=== PATIENT | female | born 1960 | race Two or more races ===

== ENCOUNTER 2024-02-13 14:30 | Observation (INO) | payer OTHER ==
[~2024-02-13] VITALS: Ht 154.9 cm; Wt 50.8 kg
[2024-02-13 15:17] VITALS: BP 143/78; PULSE 105; RESP 19; TEMP 98.2; O2SAT 100
[2024-02-13 16:01] VITALS: O2SAT 100
[2024-02-13 16:45] LABS: BASOPHILS % (AUTO) 0.3 % (0.0-2.0); EOSINOPHILS % (AUTO) 0.3 % (0.0-4.0); HEMATOCRIT 41.3 % (36-48); HEMOGLOBIN 14.5 g/dL (12.0-16.0); LYMPHOCYTES # (AUTO) 1.6 K/uL (2.5-16.5); LYMPHOCYTES % (AUTO) 23.7 % (20.5-51.1); MEAN CORPUSCULAR HEMOGLOBIN 30 pg (27-31); MEAN CORPUSCULAR HGB CONC 35 g/dL (33-37); MEAN CORPUSCULAR VOLUME 84.6 fL (80-94); MONOCYTES # (AUTO) 0.4 K/uL (0.8-1.0); MONOCYTES % (AUTO) 5.4 % (1.7-9.3); NEUTROPHILS # (AUTO) 4.6 K/uL (1.8-7.7); NEUTROPHILS % (AUTO) 70.3 % (42.2-75.2); PLATELET COUNT (AUTO) 290 K/uL (140-450); RED BLOOD CELL COUNT(AUTO) 4.88 MIL/uL (4.20-5.40); RED CELL DISTRIBUTION WIDTH 12.8 % (11.6-13.7); WHITE BLOOD COUNT (AUTO) 6.5 K/uL (4.8-10.8)
[2024-02-13 17:10] LABS: ANION GAP 13.7 (8-16); CALCIUM 8.9 mg/dL (8.5-10.1); POTASSIUM 3.7 mmol/L (3.5-5.1)
[2024-02-13 17:18] LABS: ALANINE AMINOTRANSFERASE 22 U/L (12-78); ALBUMIN 4.2 g/dL (3.4-5.0); ALKALINE PHOSPHATASE 91 U/L (50-136); ASPARTATE AMINOTRANSFERASE 20 U/L (15-37); BILIRUBIN,DIRECT 0.1 mg/dL (0.0-0.3); TOTAL BILIRUBIN 0.2 mg/dL (0.0-1.0); TOTAL PROTEIN, SERUM 8.9 g/dL (6.4-8.2)
[2024-02-13] MEDS ORDERED: ACETAMINOPHEN 325 MG TAB PO PRN (18:55)
[2024-02-13] MEDS ORDERED: LORazepam 2 MG/ML VIAL IVP PRN (18:55)
[2024-02-13] MEDS ORDERED: ONDANSETRON 4 MG/2 ML VIAL IVP PRN (18:55)
[2024-02-13] MEDS ORDERED: HYDROmorphone PFS 2 MG/ML SYR IVP PRN (18:55)
[2024-02-13] MEDS ORDERED: ZOLPIDEM 5 MG TAB PO PRN (18:55)
[2024-02-13] MEDS ORDERED: MORPHINE SULFATE 2 MG/ML SYR IVP PRN (18:55)
[2024-02-13] MEDS ORDERED: NITROGLYCERIN 0.4 MG TAB SL PRN (18:55)
[2024-02-13 19:36] VITALS: O2SAT 100
[2024-02-13] MEDS: ASPIRIN 81 MG TAB.CHEW PO ONE (19:38)
[2024-02-13] MEDS: METOPROLOL 25 MG TAB PO SCH (21:22)
[2024-02-13 21:41] VITALS: O2SAT 98
[2024-02-13 23:37] VITALS: O2SAT 96
[2024-02-14 01:22] VITALS: O2SAT 96
[2024-02-14 03:31] VITALS: O2SAT 97
[2024-02-14 07:17] LABS: BASOPHILS % (AUTO) 0.3 % (0.0-2.0); EOSINOPHILS % (AUTO) 0.8 % (0.0-4.0); HEMATOCRIT 39.5 % (36-48); HEMOGLOBIN 13.7 g/dL (12.0-16.0); LYMPHOCYTES # (AUTO) 1.3 K/uL (2.5-16.5); LYMPHOCYTES % (AUTO) 29.9 % (20.5-51.1); MEAN CORPUSCULAR HEMOGLOBIN 30 pg (27-31); MEAN CORPUSCULAR HGB CONC 35 g/dL (33-37); MEAN CORPUSCULAR VOLUME 85.6 fL (80-94); MONOCYTES # (AUTO) 0.4 K/uL (0.8-1.0); MONOCYTES % (AUTO) 9.8 % (1.7-9.3); NEUTROPHILS # (AUTO) 2.5 K/uL (1.8-7.7); NEUTROPHILS % (AUTO) 59.2 % (42.2-75.2); PLATELET COUNT (AUTO) 258 K/uL (140-450); RED BLOOD CELL COUNT(AUTO) 4.61 MIL/uL (4.20-5.40); RED CELL DISTRIBUTION WIDTH 13.1 % (11.6-13.7); WHITE BLOOD COUNT (AUTO) 4.2 K/uL (4.8-10.8)
[2024-02-14 08:00] VITALS: BP 137/71; PULSE 84; RESP 18; TEMP 97.6; O2SAT 100
[2024-02-14 08:00] LABS: ALBUMIN 3.7 g/dL (3.4-5.0); CALCIUM 8.6 mg/dL (8.5-10.1); CARBON DIOXIDE 25.3 mmol/L (21-32); CREATININE 0.7 mg/dL (0.6-1.3); MAGNESIUM 1.9 mg/dL (1.8-2.4); POTASSIUM 4.3 mmol/L (3.5-5.1); TOTAL BILIRUBIN 0.4 mg/dL (0.0-1.0)
[2024-02-14] MEDS: DOCUSATE SODIUM 100 MG GELCAP PO SCH (10:02)
[2024-02-14] MEDS: ENOXAPARIN 40 MG/0.4 ML SYR SUBQ SCH (10:04)
[2024-02-14 12:00] VITALS: BP 104/61; PULSE 56; PULSE 75; RESP 18; TEMP 97.5; O2SAT 98
[2024-02-14] MEDS ORDERED: ASPI-1856 PO (14:10)
[2024-02-14] MEDS ORDERED: IBUP200C97 PO (14:10)
[2024-02-14 14:17] VITALS: BP 104/61; PULSE 75; RESP 18; TEMP 97.5
[2024-02-14] MEDS ORDERED: MEDS-TO-BEDS MC SCH (21:00)
== END 2024-02-14 15:34 | disposition home or self-care (01) ==
LOC: MED 14:30 → MTU 18:55
PROVIDERS: ADMIT Internal Medicine; ATTEND Internal Medicine
DX: R07.89 Other chest pain (principal); R20.0 Anesthesia of skin; E78.00 Pure hypercholesterolemia, unspecified; Z79.82 Long term (current) use of aspirin; Z79.899 Other long term (current) drug therapy
CPT/HCPCS: 36415; 71045; 80048; 80053; 80076; 83735; 83880; 84484; 85025; 85379; 87081; 93005; 96372; 99285; G0378; J1650